=== PATIENT | male | born 2000 | race Caucasian/White ===

== ENCOUNTER 2020-05-13 23:22 | Emergency (ER) | payer BC, SELFPAY ==
--- NOTE | ~2020-05-13 | XR_ITS ---
EXAMINATION: XR elbow LT min 3V DATE: 05/13/2020 23:48 INDICATION: Elbow laceration post fall TECHNIQUE: Anteroposterior, two oblique and lateral views of the left elbow were obtained. COMPARISON: None. FINDINGS: Alignment is normal. No fracture or joint effusion. Joint spaces are normal. Soft tissues are unremar kable. No radiopaque foreign bodies. IMPRESSION: 1. Negative left elbow radiographs. Reviewed, dictated and finalized at location A.
[2020-05-13 23:24] VITALS: BP 158/60; PULSE 120; RESP 20; TEMP 36.2; O2SAT 100
--- NOTE | 2020-05-13 23:35 | ED.GENADULT ---
HPI - General Adult General Chief complaint: Wound/Laceration Stated complaint: elbow lac? Time Seen by Provider: 05/13/20 23:32 Source: patient History of Present Illness HPI narrative: Patient is a 19 y/o male complaining of mild left elbow pain. He states that he was playing hockey and fell on his left elbow. He noticed that his elbow protective pad slid off and he has a laceration on his elbow. This happened approximately 1 hour ago. There is no pain radiation. He is able to move his elbow. He denies hitting head or having LOC or any other injury. He states that he is up to date on Tetanus. Related Data Allergies Allergy/AdvReac Type Severity Reaction Status Date / Time No Known Allergies Allergy Unverified 12/08/11 12:36 Review of Systems Constitutional: Constitutional: Denies chills, Denies fever(s), Denies headache(s) and Denies weakness Eyes: Eyes: Denies blurry vision ENT: Denies headache(s) and Denies neck pain Cardiovascular: Cardiovascular: Denies chest pain and Denies dyspnea Respiratory: Respiratory: Denies cough and Denies dyspnea Gastrointestinal: Gastrointestinal: Denies abdominal pain, Denies diarrhea, Denies nausea and Denies vomiting Genitourinary: Genitourinary: Denies hematuria and Denies dysuria Musculoskeletal: Musculoskeletal: Denies back pain, Reports arthralgias (left elbow pain) and Denies neck pain Integumentary/Breasts: Skin/Breast: Reports as per HPI Neurologic: Denies headache(s) and Denies weakness [facility] Social History Social History Gender identity (if verbalized by the patient): Male Exam Const: General: no acute distress and well developed Orientation/consciousness: oriented to person, oriented to place, oriented to time and patient oriented x3 HENMT: Head: normocephalic Ears: external ears normal General nose exam: Normal external nose present Eyes: General: appearance normal, both eyes and all related structures Conjunctivae: conjunctivae normal Neck: Neck: normal visual inspection and full ROM Chest: Chest palpation & inspection: normal inspection of the chest and no tenderness Resp: Effort & Inspection: normal respiratory effort Auscultation: clear to auscultation bilaterally Cardio: Rate: regular rate Rhythm: regular rhythm GI: GI Palp: No abdominal tenderness and Yes Soft to palpation Skin: General skin exam: normal color and turgor normal Trauma: laceration (1.5 cm left elbow) Neuro: General: oriented to person, oriented to place, oriented to time and patient oriented x3 Cognition (Neuro): normal cognition Extrem: General: normal to inspection, full ROM and no pedal edema Psych: Appearance: grossly normal Mental Status: mental status grossly normal Affect: normal affect Course Vital Signs Vital signs: Vital Signs Temperature 36.2 C L 05/13/20 23:24 Pulse Rate 120 H 05/13/20 23:24 Respiratory Rate 20 05/13/20 23:24 Blood Pressure 158/60 H 05/13/20 23:24 Pulse Oximetry 100 05/13/20 23:24 Temperature 36.9 C 05/14/20 00:28 Pulse Rate 89 05/14/20 00:28 Respiratory Rate 16 05/14/20 00:28 Blood Pressure 144/86 H 05/14/20 00:28 Pulse Oximetry 98 05/14/20 00:28 Procedures Laceration Laceration 1: Date: 05/14/20 Time: 00:15 Site: upper extremity Side (If applicable): left (left elbow) Size (cm): 1.5 Description: linear Depth: simple, single layer Local Anesthetic: lidocaine 1% and with epi Amount of anesthesia used (mL): 2 Pre-repair: wound explored and irrigated ====== Skin Level ====== Skin layer closed with: nylon Size (cm): 4-0 Number of sutures: 3 Technique: simple, interrupted ====== Subcutaneous Layer ====== ====== Muscle Layer ====== ====== Tendon Layer ====== Medical Decision Making Vital Signs Vital Signs: Vital Signs Temperatu
[2020-05-14 00:28] VITALS: BP 144/86; PULSE 89; RESP 16; TEMP 36.9; O2SAT 98
== END 2020-05-14 00:28 | disposition home or self-care (01) ==
PROVIDERS: Emergency Provider Emergency Medicine
DX: S51.012A Laceration without foreign body of left elbow, initial encounter (principal); W19.XXXA Unspecified fall, initial encounter; Y93.22 Activity, ice hockey
CPT/HCPCS: 12001; 73080; 99282

== ENCOUNTER 2020-09-16 09:06 | Emergency (ER) | payer BC, SELFPAY ==
--- NOTE | ~2020-09-16 | CT_ITS ---
EXAMINATION: CT abdomen pelvis w con DATE: 09/16/2020 10:33 INDICATION: Mid abdominal pain. TECHNIQUE: Computed tomography (CT) of the abdomen and pelvis was performed with 100 mL Omnipaque 350 intravenous contrast. Automated exposure control and iterative reconstruction technique were employe d. The dose-length product was 794.60 mGy-cm. COMPARISON: None. FINDINGS: The visualized portions of the lung bases demonstrate minimal atelectasis. No pleural effus ion. The heart size is normal. No pericardial effusion. The liver, gallbladder, spleen, pancreas, adr enal glands, and kidneys are normal. There are no dilated loops of bowel. The appendix is normal. The re are no pathologically enlarged lymph nodes. There is no free intraperitoneal fluid. There are Schm orl's nodes at most levels in the spine. IMPRESSION: 1. No etiology for the patient's symptoms. Reviewed, dictated and finalized at location A. RI[employer] MEDICAL EXAMINER
--- NOTE | ~2020-09-16 | US_ITS ---
EXAMINATION: US scrotum doppler EXAM DATE: 09/16/2020 11:31 INDICATION: Left-sided testicular pain. TECHNIQUE: Multiple grayscale and Doppler images of the testicles and scrotum were obtained bilateral ly. Correlation is made to CT abdomen same date. FINDINGS: Right testicle measures 5.0 x 2.2 x 3.3 cm and is morphologically normal. Low resistance Doppler ирина w confirmed. The epididymis is unremarkable. There is no hydrocele or varicocele. Left testicle measures 4.7 x 2.2 x 3.2 cm and is morphologically normal. Low resistance Doppler flow confirmed. The epididymis is unremarkable. There is no hydrocele or varicocele. IMPRESSION: 1. Unremarkable testicular/scrotal ultrasound exam. Reviewed, dictated and finalized at location B. HIC DESIGN ASSISTANT
[2020-09-16 09:12] VITALS: BP 153/99; PULSE 88; RESP 16; TEMP 36.8; O2SAT 100
[2020-09-16 09:53] LABS: Hematocrit 46.5 % (42.0-52.0); Hemoglobin 16.7 g/dL (14.0-18.0); Mean Corpuscular HGB Conc 35.9 g/dl (32-36); Mean Corpuscular Volume 89.1 fl (80-100); Mean Platelet Volume 10.5 fl (7.4-10.4); Platelet Count Result 261 k/mm3 (150-375); Red Blood Count 5.22 M/mm3 (4.6-6.20); Red Cell Distribution Width 12.1 % (11.5-14.5)
[2020-09-16 09:58] LABS: Add Urine Microscopic? NO; Appearance Urine Clear (Clear); Bilirubin Urine Negative (Negative); Blood Urine Negative (Negative); Color Urine Straw (Yellow); Glucose Urine UA Negative (Negative); Ketones Urine Negative (Negative); Leukocyte Esterase Ur Negative LEU/UL (Negative); Nitrate Urine Negative (Negative); Protein Urine Negative (Negative); Specific Grav Ur 1.008 (1.001-1.035); Urobilinogen Urine Negative mg/dL (<2.0)
[2020-09-16 10:16] LABS: Alanine Aminotransferase 26 U/L (4-50); Albumin Level 4.4 g/dL (3.7-5.6); Alkaline Phosphatase 61 U/L (58-237); Anion Gap 8 mmol/L (8-16); Aspartate Amino Transferase 33 U/L (17-59); Bilirubin,Total 0.3 mg/dL (0.2-1.3); Blood Urea Nitrogen 9 mg/dL (8-21); Calcium 9.1 mg/dL (8.9-10.7); Carbon Dioxide 28 mmol/L (22-30); Chloride 103 mmol/L (98-107); Estimated CRCL calculation 138 ml/min; Estimated Glomerular Filt Rate > 60; Glucose 111 mg/dL (75-110); Lipase 385 U/L (23-300); Potassium 3.6 mmol/L (3.4-5.0); Sodium 139 mmol/L (134-143)
[2020-09-16 10:20] LABS: Band Neutrophils Percent 1 % (0-6); Basophils Absolute Manual 0.17 K/mm3 (0.0-0.1); Basophils Percent Manual 1 % (0-1); Eosinophils Absolute Manual 0.51 K/mm3 (0.02-0.5); Eosinophils Percent Manual 3 % (0-4); Lymphocytes Absolute Manual 5.78 K/mm3 (1.1-4.5); Monocytes Absolute Manual 0.85 K/mm3 (0.1-0.90); Monocytes Percent Manual 5 % (3-9); Neutrophils Absolute Manual 9.69 K/mm3 (1.3-6.7); Neutrophils Percent Manual 56 % (46-73); Total Cells Counted 100
[2020-09-16 10:21] LABS: Ovalocytes 1+ (NORMAL); Platelet Estimate Adequate (Adequate)
--- NOTE | 2020-09-16 10:22 | PC.NURSE ---
Pt taken to CT
[2020-09-16] MEDS: SODIUM CHLORIDE 0.9% IV 1,000 ML 999 ML IV CONT (10:36)
[2020-09-16] MEDS: ONDANSETRON INJ 4 MG/2 ML VIAL IV PUSH (10:36)
[2020-09-16] MEDS: MORPHINE SULFATE (*CRX) 4 MG/ML INJ IV PUSH (10:37)
[2020-09-16 11:30] VITALS: BP 147/98; PULSE 87; RESP 18; O2SAT 100
--- NOTE | 2020-09-16 11:46 | ED.ABDPAIN ---
HPI - Abdominal Pain General Chief Complaint: Abdominal Pain Stated Complaint: abd and testicular pain Time Seen by Provider: 09/16/20 10:02 Source: patient and family Mode of arrival: ambulatory Limitations: no limitations History of Present Illness HPI narrative: 19 years old white male presents with testicular pain for the last 12 months, intermittent, constant for the last 2 to 3 weeks. Patient also noticed some pain at the right upper quadrant for the last 12 months. The above symptoms get worse worse with sitting, nothing make it better. Patient denies any fever, chills, nausea, vomiting, constipation, diarrhea, urinary symptoms, abdominal surgery. Last sexual activity over 10 months ago Related Data Home Medications Medication Instructions Recorded Confirmed No Home Medications 09/16/20 09/16/20 Allergies Allergy/AdvReac Type Severity Reaction Status Date / Time No Known Allergies Allergy Verified 09/16/20 09:17 Review of Systems Review of Systems: Narrative: CONSTITUTIONAL: Denies fever, chills, or sweats. EYES: Denies visual changes, redness, or discharge. ENT: Denies rhinorrhea, congestion, sore throat, or otalgia. CARDIOVASCULAR: Denies chest pain, palpitations, or edema. RESPIRATORY: Denies cough or dyspnea. GASTROINTESTINAL: Denies abdominal pain, nausea, vomiting, or diarrhea. GENITOURINARY: Denies dysuria or hematuria. SKIN: Denies rash or itching. MUSCULOSKELETAL: Denies back pain, joint pain, or myalgia. NEUROLOGIC: Denies headache, numbness, or weakness. PSYCHIATRIC: Denies anxiety or depression. PMFSH Social History Social History Gender identity (if verbalized by the patient): Male Exam Narrative: Exam Narrative: General appearance: Well-developed, well-nourished Skin: Normal color Head: Normocephalic, nontraumatic Eyes: Clear conjunctiva ENT: Oropharynx normal, ears normal, nose normal Neck: Supple, nontender Chest and respiratory: Airway patent, no respiratory distress, no accessory muscle use Heart: Regular rate/rhythm Abdomen: Soft, mild tenderness right upper quadrant, no organomegaly, quiet bowel sounds, genital exam showed no acute abnormalities. Vascular: Normal peripheral pulses, normal capillary refill. Musculoskeletal: Normal range of motion, nontender back Neurologic: Alert and oriented ?3, RECTIFICATION PRINTER is normal as tested, no gross motor deficit Course Course Emergency Course: Stable Consultations Consultation #1: Dr. Eason Agreed to see the patient as outpatient Date: 09/16/20 Time: 12:10 Vital Signs Vital signs: Vital Signs Temperature 36.8 C 09/16/20 09:12 Pulse Rate 88 09/16/20 09:12 Respiratory Rate 16 09/16/20 09:12 Blood Pressure 153/99 H 09/16/20 09:12 Pulse Oximetry 100 09/16/20 09:12 Temperature 36.8 C 09/16/20 09:12 Pulse Rate 88 09/16/20 09:12 Respiratory Rate 16 09/16/20 09:12 Blood Pressure 153/99 H 09/16/20 09:12 Pulse Oximetry 100 09/16/20 09:12 MDM - Abdominal Pain MDM Narrative Medical decision making narrative: Abdominal pain and testicular pain for 12 months. Labs, CT abdomen pelvis with IV contrast, UA ordered. Further plan to follow Differential Diagnosis Differential diagnosis: Likely abdominal pain and other (Anxiety related symptoms, gallbladder pathology,) Lab Data Result diagrams: 09/16/20 09:42 09/16/20 09:42 Labs: Lab Results 09/16/20 09/16/20 09/16/20 Range/Units 09:29 09:42 09:42 WBC 17.0 H (4.5-10.0) K/mm3 RBC 5.22 (4.6-6.20) M/mm3 Hgb 16.7 (14.0-18.0) g/dL Hct 46.5 (42.0-52.0) % MCV 89.1 (80-100) fl [facility]
== END 2020-09-16 12:36 | disposition home or self-care (01) ==
PROVIDERS: Emergency Provider Emergency Medicine
DX: N50.819 Testicular pain, unspecified (principal); G89.29 Other chronic pain; R10.9 Unspecified abdominal pain; D72.829 Elevated white blood cell count, unspecified
CPT/HCPCS: 36415; 74177; 76870; 80053; 81003; 83690; 85025; 93976; 96361; 96374; 96375; 99284; J2270; J2405; J7030; Q9967

== ENCOUNTER 2022-01-06 19:22 | Emergency (ER) | payer BC, SELFPAY ==
[2022-01-06 19:53] VITALS: BP 132/53; PULSE 63; RESP 16; TEMP 36.2; O2SAT 98
[2022-01-06 20:03] LABS: Basophils Absolute Auto 0.1 K/mm3 (0.0-0.1); Basophils Percent Auto 0.7 % (0.2-1.2); Eosinophils Absolute Auto 2.3 K/mm3 (0-0.3); Eosinophils Percent Auto 16.4 % (0-4.4); Hematocrit 46.9 % (42.0-52.0); Hemoglobin 15.6 g/dL (14.0-18.0); Immature Granulocyte Absolute 0.04 K/mm3 (0.00-0.031); Immature Granulocyte Percent A 0.3 % (0-0.5); Lymphocytes Absolute Auto 4.15 K/mm3 (0.9-3.2); Lymphocytes Percent Auto 29.7 % (18.3-44.2); Mean Corpuscular HGB Conc 33.3 g/dl (32-36); Mean Corpuscular Hemoglobin 31.8 pg (26-34); Mean Corpuscular Volume 95.5 fl (80-100); Mean Platelet Volume 10.3 fl (7.4-10.4); Monocytes Absolute Auto 0.9 K/mm3 (0.1-0.6); Monocytes Percent Auto 6.7 % (2.6-8.5); Neutrophils Absolute Auto 6.4 K/mm3 (1.3-6.7); Neutrophils Percent Auto 46.2 % (45.5-73.1); Platelet Count Result 176 k/mm3 (150-375); Red Blood Count 4.91 M/mm3 (4.6-6.20); Red Cell Distribution Width 12.2 % (11.5-14.5)
[2022-01-06 20:09] LABS: Appearance Urine Clear (Clear); Bilirubin Urine Negative (Negative); Color Urine Yellow (Yellow); Glucose Urine UA Negative (Negative); Ketones Urine Negative (Negative); Leukocyte Esterase Ur Negative LEU/UL (Negative); Nitrate Urine Negative (Negative); Protein Urine Negative (Negative); Urobilinogen Urine 0.2 mg/dL (<2.0); pH Urine 6.5 (5.0-9.0)
[2022-01-06 20:11] LABS: Bacteria Urine Trace /hpf; Squamous Epithelial Cell Urine Rare /hpf (Few); WBC Urine 0-3 /hpf
[2022-01-06 20:12] LABS: Add Urine Microscopic? YES; Blood Urine Trace-Intact (Negative)
[2022-01-06 20:14] LABS: Alanine Aminotransferase 32 U/L (6-50); Albumin Level 4.6 g/dL (3.5-5.1); Alkaline Phosphatase 65 U/L (38-126); Anion Gap 7 mmol/L (8-16); Aspartate Amino Transferase 36 U/L (17-59); Bilirubin,Total 0.4 mg/dL (0.2-1.3); Blood Urea Nitrogen 21 mg/dL (9-20); Calcium 9.2 mg/dL (8.4-10.2); Carbon Dioxide 31 mmol/L (22-30); Chloride 100 mmol/L (98-107); Estimated CRCL calculation 136 ml/min; Estimated Glomerular Filt Rate > 60; Glucose 86 mg/dL (65-110); Lipase 55 U/L (23-300); Potassium 4.6 mmol/L (3.4-5.0); Sodium 138 mmol/L (137-145)
[2022-01-06 21:01] VITALS: BP 143/69; PULSE 98; RESP 16; TEMP 36.4; O2SAT 100
--- NOTE | 2022-01-06 21:15 | ED.NAVMDI ---
HPI - Nausea/Vomiting/Diarrhea General Chief complaint: Abdominal Pain Stated complaint: Abd pain Time Seen by Provider: 01/06/22 21:03 History of Present Illness HPI Narrative: Patient is a 21-year-old male complaining of diarrhea, loose watery, nonbloody accompanied by nausea and intermittent lower abdominal cramping that started 2 weeks ago. Patient states that he had formed stools today but still loose. Patient currently denies any abdominal pain. Patient currently denies any nausea or vomiting. Patient denies any recent use of antibiotics or recent hospitalization. Patient denies any recent travel. Related Data Home Medications Medication Instructions Recorded Confirmed No Home Medications 09/16/20 09/16/20 Allergies Allergy/AdvReac Type Severity Reaction Status Date / Time No Known Allergies Allergy Verified 09/16/20 09:17 Review of Systems Review of Systems: All systems reviewed & are unremarkable except as noted in HPI and below Constitutional: Constitutional: Denies body ache(s), Denies chills, Denies excessive sweating, Denies fatigue, Denies fever(s), Denies headache(s), Denies lethargy, Denies malaise, Denies weakness and Denies weight loss Eyes: Eyes: Denies blurry vision, Denies change in vision and Denies loss of vision ENT: Denies dizziness, Denies ear discharge, Denies headache(s), Denies lip swelling, Denies epistaxis, Denies nasal congestion, Denies neck pain, Denies throat swelling and Denies tongue swelling Cardiovascular: Cardiovascular: Denies chest pain, Denies chest pain at rest, Denies chest pain with activity, Denies diaphoresis, Denies rapid heart rate, Denies edema, Denies irregular heart rhythm, Denies lightheadedness, Denies palpitations, Denies dyspnea and Denies dyspnea on exertion Respiratory: Respiratory: Denies chest congestion, Denies cough, Denies hemoptysis, Denies dyspnea and Denies dyspnea on exertion Gastrointestinal: Gastrointestinal: Denies melena, Denies hematochezia, Denies vomiting and Denies hematemesis Musculoskeletal: Musculoskeletal: Denies abnormal gait, Denies deformity, Denies joint swelling, Denies limited range of motion, Denies neck pain and Denies numbness Neurologic: Denies Abnormal speech present, Denies abnormal gait, Denies confusion, Denies dizziness, Denies headache(s), Denies focal weakness, Denies loss of vision, Denies numbness, Denies Other visual disturbances, Denies Sensory deficit (Neuro) and Denies weakness Psychiatric: Psychiatric: Denies confusion, Denies depression, Denies auditory hallucinations, Denies homicidal ideation and Denies suicidal ideation Endocrine: Endocrine: Denies cold intolerance, Denies excessive sweating, Denies fatigue, Denies heat intolerance and Denies palpitations Hematologic/Lymphatic: Hematologic/Lymphatic: Denies easy bleeding and Denies easy bruising Allergic/Immunologic: Allergic/Immunologic: Denies lip swelling, Denies throat swelling and Denies tongue swelling [facility], [facility] Social History Social History Gender identity (if verbalized by the patient): Male Comments Past medical history: None Family history: Unknown Social history: Non-smoker no EtOH or drug use Exam Const: General: cooperative, healthy appearing, comfortable, no acute distress, well developed, alert and awake; No confusion Orientation/consciousness: oriented to person, oriented to place, oriented to time, patient oriented x3 and No confusion Limitations: no limitations HENMT: Head: normal to inspection, normocephalic and atraumatic Ears: hearing grossly normal bilaterally, TM normal on the right and TM normal on the left General nose exam: Normal external nose present, Normal nares present and No nasal discharge present Face and sinus: normal facial exam Mouth: Yes Normal oral and palatal mucosa present, Yes lip normal, Yes tongue normal and Yes oropharynx normal Throat: posterior oropharynx
--- NOTE | 2022-01-06 21:18 | PC.NURSE ---
PT REPORTS HE DOES NOT WANT SLN UNLESS IT IS REQUIRED FOR TESTING, ERP NOTIFIED.
[2022-01-06 21:42] VITALS: BP 131/49; PULSE 70; RESP 16; TEMP 36.8; O2SAT 100
[2022-01-06 22:35] VITALS: BP 118/69; PULSE 68; RESP 16; TEMP 36.4; O2SAT 100
== END 2022-01-06 22:38 | disposition home or self-care (01) ==
LOC: ANHED 21:31
PROVIDERS: Emergency Provider Emergency Medicine
DX: K52.9 Noninfective gastroenteritis and colitis, unspecified (principal)
CPT/HCPCS: 36415; 80053; 81001; 83690; 85025; 99283